=== PATIENT | male | born 1935 | race Caucasian/White ===

== ENCOUNTER 2016-12-17 22:49 | Inpatient (IN) | payer MEDICARE, OTHER ==
[~2016-12-17] VITALS: Ht 170.2 cm; Wt 94.3 kg
[~2016-12-17 22:49] MED LIST: ASMANEX 2214 PUFF/IN INH; ASPIRIN81 MG PO; BIOSUPP473 ML PO; CELEXA20 MG PO; CEROVITE ADVANC1 TAB PO; COREG25 MG PO; ELAVIL10 MG PO; FISH OIL1 GM PO; GLUCOPHAGE XR500 MG PO; LIPITOR80 MG PO; NEURONTIN300 MG PO; NITROSTAT0.4 MG SL; NORVASC5 MG PO; PRINIVIL20 MG PO; PROVENTIL HFA6.7 GM INH; SPIRIVA18 MCG INH; SYMBICORT 160-4.6 GM INH; TYLENOL ARTHRI650 M1 PO
[2016-12-18] MEDS ORDERED: BYSTOLIC2.5 MG PO (00:11)
[2016-12-18] MEDS ORDERED: COLACE100 MG PO (00:16)
[2016-12-18] MEDS ORDERED: KLOR-CON M2020 MEQ PO (00:17)
[2016-12-18] MEDS ORDERED: LASIX80 MG PO (00:17)
[2016-12-18] MEDS ORDERED: ZAROXOLYN2.5 MG PO (00:18)
[2016-12-18] MEDS ORDERED: NAMENDA5 MG PO (00:18)
[2016-12-18] MEDS ORDERED: MUCINEX600 MG PO (00:19)
[2016-12-18] MEDS ORDERED: ZYPREXA15 MG PO (00:21)
[2016-12-18] MEDS ORDERED: PRILOSEC20 MG PO (00:21)
[2016-12-18] MEDS ORDERED: PROTONIX40 MG PO (00:22)
[2016-12-18] MEDS ORDERED: ZOLOFT50 MG PO ×2 (00:51→00:52)
[2016-12-20] MEDS ORDERED: LASIX40 MG PO (08:33)
[2017-04-21] MEDS ORDERED: ZOLOFT50 MG PO (04:35)
[2017-04-21] MEDS ORDERED: ZEBETA5 MG PO (04:39)
[2017-05-17] MEDS ORDERED: REQUIP0.25 MG PO (18:08)
== END 2016-12-20 10:30 | disposition short-term general hospital (02) | DRG 292 ==
LOC: ER 22:49 → IP 12-18 01:40
PROVIDERS: ADMIT Family Medicine
PROC: 5A09357 Assistance with Respiratory Ventilation, Less than 24 Consecutive Hours, Continuous Positive Airway Pressure (ICD-10-PCS; principal; 2016-12-18)
DX: I13.0 Hypertensive heart and chronic kidney disease with heart failure and stage 1 through stage 4 chronic kidney disease, or unspecified chronic kidney disease (principal); I50.32 Chronic diastolic (congestive) heart failure; I25.10 Atherosclerotic heart disease of native coronary artery without angina pectoris; J44.9 Chronic obstructive pulmonary disease, unspecified; E11.22 Type 2 diabetes mellitus with diabetic chronic kidney disease; N18.9 Chronic kidney disease, unspecified; F03.90 Unspecified dementia, unspecified severity, without behavioral disturbance, psychotic disturbance, mood disturbance, and anxiety; F32.9 Major depressive disorder, single episode, unspecified; K59.00 Constipation, unspecified; Z87.891 Personal history of nicotine dependence; Z95.1 Presence of aortocoronary bypass graft; Z95.5 Presence of coronary angioplasty implant and graft; G47.30 Sleep apnea, unspecified; I48.0 Paroxysmal atrial fibrillation; E78.5 Hyperlipidemia, unspecified; D63.1 Anemia in chronic kidney disease; E87.6 Hypokalemia; R09.02 Hypoxemia
CPT/HCPCS: A9150; J1650; J1940; Q9967

== ENCOUNTER → 2017-01-01 | Outpatient (CLI) | payer MEDICARE, OTHER ==
[~2017-01-01] MED LIST changes: +BYSTOLIC2.5 MG PO; +COLACE100 MG PO; +KLOR-CON M2020 MEQ PO; +LASIX40 MG PO; +LASIX80 MG PO; +MUCINEX600 MG PO; +NAMENDA5 MG PO; +PRILOSEC20 MG PO; +PROTONIX40 MG PO; +REQUIP0.25 MG PO; +ZAROXOLYN2.5 MG PO; +ZEBETA5 MG PO; +ZOLOFT50 MG PO; +ZYPREXA15 MG PO
== END | disposition short-term general hospital (02) ==
LOC: CLCARD 09:57
DX: I13.0 Hypertensive heart and chronic kidney disease with heart failure and stage 1 through stage 4 chronic kidney disease, or unspecified chronic kidney disease (principal); I50.32 Chronic diastolic (congestive) heart failure; E11.22 Type 2 diabetes mellitus with diabetic chronic kidney disease; N18.9 Chronic kidney disease, unspecified; I48.0 Paroxysmal atrial fibrillation; I25.10 Atherosclerotic heart disease of native coronary artery without angina pectoris; F32.9 Major depressive disorder, single episode, unspecified; E78.5 Hyperlipidemia, unspecified; G47.30 Sleep apnea, unspecified

== ENCOUNTER → 2017-01-07 | Outpatient (CLI) | payer MEDICARE, OTHER | END | disposition short-term general hospital (02) | LOC: CLNEPH 11:52 | DX: E11.22 Type 2 diabetes mellitus with diabetic chronic kidney disease (principal); I13.0 Hypertensive heart and chronic kidney disease with heart failure and stage 1 through stage 4 chronic kidney disease, or unspecified chronic kidney disease; N18.4 Chronic kidney disease, stage 4 (severe); N17.9 Acute kidney failure, unspecified; I50.32 Chronic diastolic (congestive) heart failure; J44.9 Chronic obstructive pulmonary disease, unspecified; I25.810 Atherosclerosis of coronary artery bypass graft(s) without angina pectoris; Z99.81 Dependence on supplemental oxygen ==

== ENCOUNTER → 2017-01-29 | Outpatient (CLI) | payer MEDICARE, OTHER | END | disposition short-term general hospital (02) | LOC: CLCARD 04:05 | DX: I13.0 Hypertensive heart and chronic kidney disease with heart failure and stage 1 through stage 4 chronic kidney disease, or unspecified chronic kidney disease (principal); I50.30 Unspecified diastolic (congestive) heart failure; N18.9 Chronic kidney disease, unspecified; E78.5 Hyperlipidemia, unspecified; G47.30 Sleep apnea, unspecified; I25.10 Atherosclerotic heart disease of native coronary artery without angina pectoris; E11.9 Type 2 diabetes mellitus without complications; I48.91 Unspecified atrial fibrillation; F32.9 Major depressive disorder, single episode, unspecified ==